=== PATIENT | female | born 1985 | race Caucasian/White ===

== ENCOUNTER 2020-12-18 13:45 | Outpatient (CLI) | payer OTHER, SELFPAY | END 2020-12-18 13:46 | disposition home or self-care (01) | PROVIDERS: PCP Family Medicine; Visit Provider Otolaryngology | DX: H65.92 Unspecified nonsuppurative otitis media, left ear (principal); H72.92 Unspecified perforation of tympanic membrane, left ear; H90.6 Mixed conductive and sensorineural hearing loss, bilateral | CPT/HCPCS: 92557; 92567 ==